=== PATIENT | male | born 1960 | race Caucasian/White ===

== ENCOUNTER 2020-01-21 23:15 | Emergency (ER) | payer BC ==
[~2020-01-21] VITALS: Ht 180.3 cm; Wt 102.5 kg
[2020-01-21 23:21] VITALS: Ht 180.3 cm; Wt 102.5 kg
[2020-01-22 01:38] VITALS: BP 155/92
== END 2020-01-22 01:38 | disposition home or self-care (01) ==
LOC: ED 23:15
DX: M25.561 Pain in right knee (principal)